=== PATIENT | male | born 1950 | race Hispanic/Latino ===

== ENCOUNTER → 2017-11-11 | Outpatient (CLI) | payer MEDICARE ==
[~2017-11-11] MED LIST: ASPI-1181 PO; CLOP75TA32 PO; LISI1TAB9 PO; METO25TA6 PO; PRAV80TA21 PO
== END | disposition home or self-care (01) ==
LOC: SHCH 10:00
PROVIDERS: ATTEND Internal Medicine Cardiovascular Disease
DX: I70.211 Atherosclerosis of native arteries of extremities with intermittent claudication, right leg (principal)
CPT/HCPCS: 93925

== ENCOUNTER 2017-12-13 07:42 | Observation (INO) | payer MEDICARE ==
[2017-12-09 12:13] VITALS: BP 138/65
[2017-12-09 12:20] LABS: BASOPHILS % (AUTO) 0.7 % (0.0-5.0); EOSINOPHILS % (AUTO) 2.2 % (0.0-8.0); HEMATOCRIT 46.8 % (42-54); LYMPHOCYTES % (AUTO) 20.3 % (21.0-51.0); MEAN CORPUSCULAR HEMOGLOBIN 29.6 pg (27.0-33.0); MEAN CORPUSCULAR HGB CONC 34.7 g/dL (32.0-36.0); MEAN CORPUSCULAR VOLUME 85.2 fL (79-99); MONOCYTES % (AUTO) 7.2 % (3.0-13.0); NEUTROPHILS % (AUTO) 69.6 % (40.0-77.0); NUCLEATED RED BLOOD CELLS 0.1 % (0.0-0.19); PLATELET COUNT (AUTO) 172 K/uL (130-400); RED BLOOD CELL COUNT(AUTO) 5.49 MIL/uL (4.50-6.20); RED CELL DISTRIBUTION WIDTH 13.8 % (11.0-15.5); WHITE BLOOD COUNT (AUTO) 7.9 K/uL (4.8-10.8)
[2017-12-09 12:21] LABS: APPEARANCE,URINE Clear (CLEAR); BILIRUBIN,URINE Negative (NEGATIVE); COLOR,URINE Yellow (YELLOW); GLUCOSE, URINE (UA) Negative (NEGATIVE); KETONES,URINE Negative (NEGATIVE); LEUKOCYTE ESTERASE ,URINE Trace (NEGATIVE); NITRATE,URINE Negative (NEGATIVE); OCCULT BLOOD,URINE Trace (NEGATIVE); PROTEIN,URINE Negative (NEGATIVE); UROBILINOGEN,URINE 0.2 mg/dL (0.2-1.0)
[2017-12-09 12:25] LABS: CREATININE 1.1 mg/dL (0.5-1.5); POTASSIUM 4.2 mmol/L (3.5-5.1)
[2017-12-09 12:26] LABS: BACTERIA,URINE Rare /HPF (None Seen); RBC,URINE 0-1 /HPF (0-1); SQUAMOUS EPITHELIAL CELL,UR Rare /HPF (0-2); WBC,URINE 0-1 /HPF (0-1)
[2017-12-09 12:53] LABS: INR 0.99 (0.85-1.15); PARTIAL THROMBOPLASTIN TIME 25.7 SEC (26.3-35.5); PROTHROMBIN TIME 10.4 SEC (9.6-11.6)
[~2017-12-13] VITALS: Ht 170.2 cm; Wt 104.6 kg
[2017-12-13] VITALS (8 sets, daily range): BP systolic 115–154; BP diastolic 58–87
[~2017-12-13 07:42] MED LIST changes: -CLOP75TA32 PO
[2017-12-13] MEDS ORDERED: BIVALIRUDIN 250 MG/VIAL IV ONE (12:49)
[2017-12-13] MEDS ORDERED: ISOVUE-300 100 ML VIAL IV ONE ×2 (12:50→14:49)
[2017-12-13] MEDS ORDERED: HEPARIN SODIUM 1000UNIT/ML 10ML VIAL ONE ×2 (12:50→14:23)
[2017-12-13] MEDS ORDERED: LIDOCAINE HCL 2% 20ML ONE (12:50)
[2017-12-13] MEDS ORDERED: NITROGLYCERIN 5 MG/ML 10 ML VIAL IV ONE (12:50)
[2017-12-13] MEDS ORDERED: MIDAZOLAM HCL 1 MG/ML 2ML VIAL ONE (14:00)
[2017-12-13] MEDS ORDERED: MORPHINE SULFATE 4 MG/1ML SYG ONE ×2 (14:01→15:20)
[2017-12-13] MEDS ORDERED: SODIUM CHLORIDE 0.9% 1000ML 1,000 ML IV SCH (15:49)
[2017-12-13] MEDS ORDERED: ASPIRIN 325MG EC TAB 325 MG TABLET.DR PO ONE (15:51)
[2017-12-13] MEDS ORDERED: CLOPIDOGREL BISULFATE 300 MG TAB ONE (15:51)
[2017-12-13] MEDS ORDERED: ATORVASTATIN CALCIUM 10 MG TABLET PO SCH (21:00)
[2017-12-13] MEDS: METOPROLOL TARTRATE 25 MG TAB PO SCH (21:00)
[2017-12-14 03:12] VITALS: BP 130/60
[2017-12-14 04:29] LABS: CREATININE 1.2 mg/dL (0.5-1.5); POTASSIUM 3.6 mmol/L (3.5-5.1)
[2017-12-14 08:02] VITALS: BP 123/66
[2017-12-14] MEDS: METOPROLOL TARTRATE 25 MG TAB PO SCH (08:36)
[2017-12-14] MEDS ORDERED: CLOP75TA32 PO (08:45)
[2017-12-14] MEDS ORDERED: ASPIRIN 81 MG EC TAB PO SCH (09:00)
[2017-12-14] MEDS ORDERED: ASPIRIN 81MG TAB.CHEW PO SCH (09:00)
[2017-12-14] MEDS ORDERED: LISINOPRIL 10 MG TABLET PO SCH (09:00)
[2017-12-14] MEDS ORDERED: CLOPIDOGREL BISULFATE 75 MG TAB PO SCH (09:00)
[2017-12-14] MEDS ORDERED: HYDROCHLOROTHIAZIDE 25 MG TABLET PO SCH (09:00)
== END 2017-12-14 11:30 | disposition home or self-care (01) ==
LOC: DAH 07:42 → DAHIP 07:43 → 2DH 16:14
PROVIDERS: ADMIT Internal Medicine Cardiovascular Disease; ATTEND Internal Medicine Cardiovascular Disease
DX: I70.213 Atherosclerosis of native arteries of extremities with intermittent claudication, bilateral legs (principal); E78.5 Hyperlipidemia, unspecified; I10 Essential (primary) hypertension; I25.2 Old myocardial infarction; I25.10 Atherosclerotic heart disease of native coronary artery without angina pectoris; Z95.1 Presence of aortocoronary bypass graft; Z82.49 Family history of ischemic heart disease and other diseases of the circulatory system; Z79.82 Long term (current) use of aspirin; Z79.84 Long term (current) use of oral hypoglycemic drugs
CPT/HCPCS: 36415 ×3; 37221; 37225; 71045; 75630; 80048 ×2; 80061; 81001; 82948; 85025; 85347 ×2; 85610; 85730; 93005; A4606; C1724; C1725 ×2; C1760; C1769 ×4; C1876; C1887; C1893; C1894 ×2; G0378 ×28; J1644 ×2; J2250; J2270 ×2; J3490 ×2; Q9967 ×2; 75710; 99152; 99153; J0583

== ENCOUNTER 2022-10-27 18:46 | Observation (INO) | payer MEDICARE, OTHER ==
[~2022-10-27] VITALS: Ht 177.8 cm; Wt 95.3 kg
[~2022-10-27 18:46] MED LIST changes: -ASPI-1181 PO; +ASPI-1443 PO; +CLOP75TA32 PO; +LISI1TAB49 PO; -LISI1TAB9 PO
[2022-10-27] MEDS ORDERED: LABETALOL 20MG SYG IV ONE (19:30)
[2022-10-27 19:52] LABS: BASOPHILS % (AUTO) 0.5 % (0.0-5.0); EOSINOPHILS % (AUTO) 1.4 % (0.0-8.0); HEMATOCRIT 49.5 % (42-54); MEAN CORPUSCULAR HEMOGLOBIN 28.5 pg (27.0-33.0); MEAN CORPUSCULAR HGB CONC 32.7 g/dL (32.0-36.0); MONOCYTES % (AUTO) 7.1 % (3.0-13.0); NEUTROPHILS % (AUTO) 76.3 % (40.0-77.0); PLATELET COUNT (AUTO) 173 K/uL (130-400); RED BLOOD CELL COUNT(AUTO) 5.69 MIL/uL (4.50-6.20); RED CELL DISTRIBUTION WIDTH 13.5 % (11.0-15.5); WHITE BLOOD COUNT (AUTO) 9.6 K/uL (4.8-10.8)
[2022-10-27 20:04] LABS: CREATININE 1.2 mg/dL (0.5-1.5); INR 1.02 (0.85-1.15); POTASSIUM 4.2 mmol/L (3.5-5.1); PROTHROMBIN TIME 11.1 SEC (9.6-11.6)
[2022-10-27 20:05] LABS: PARTIAL THROMBOPLASTIN TIME 28.2 SEC (26.3-35.5)
[2022-10-27 20:12] LABS: ALBUMIN 3.9 g/dL (3.5-5.0); TOTAL PROTEIN, SERUM 7.3 g/dL (6.0-8.3)
[2022-10-27] MEDS ORDERED: ASPIRIN 81MG CHEW TAB PO ONE (21:00)
[2022-10-27] MEDS ORDERED: IOHEXOL 350 MG/ML 100ML INFUS..BTL IV ONE (22:59)
[2022-10-27] MEDS ORDERED: NITROGLYCERIN 0.4 MG SL TAB SL PRN (23:00)
[2022-10-27] MEDS ORDERED: ACETAMINOPHEN 325 MG TAB PO PRN ×2 (23:00)
[2022-10-27] MEDS ORDERED: ONDANSETRON 4MG INJ IV PRN (23:00)
[2022-10-27 23:31] LABS: HEMOGLOBIN A1C 5.9 % (4.0-6.0)
[2022-10-27 23:32] LABS: APPEARANCE,URINE CLEAR (CLEAR); BILIRUBIN,URINE NEGATIVE (NEGATIVE); GLUCOSE, URINE (UA) NEGATIVE (NEGATIVE); KETONES,URINE NEGATIVE (NEGATIVE); LEUKOCYTE ESTERASE ,URINE NEGATIVE Leu/uL (NEGATIVE); NITRATE,URINE NEGATIVE (NEGATIVE); OCCULT BLOOD,URINE NEGATIVE (NEGATIVE); PROTEIN,URINE NEGATIVE (NEGATIVE); UROBILINOGEN,URINE 0.2 mg/dL (0.2-1.0)
[2022-10-27 23:35] LABS: AMPHET/METH SCREEN,URINE NEGATIVE (NEGATIVE); BARBITURATE SCREEN, URINE NEGATIVE (NEGATIVE); BENZODIAZEPINES SCREEN,URINE NEGATIVE (NEGATIVE); CANNABINOID SCREEN,URINE NEGATIVE (NEGATIVE); COCAINE SCREEN,URINE NEGATIVE (NEGATIVE); OPIATE SCREEN,URINE NEGATIVE (NEGATIVE); PHENCYCLIDINE SCREEN,URINE NEGATIVE (NEGATIVE)
[2022-10-27 23:39] LABS: COLOR,URINE Light-Yellow (YELLOW)
[2022-10-27 23:40] LABS: RBC,URINE 0-1 /HPF (0-1); SQUAMOUS EPITHELIAL CELL,UR RARE /HPF (0-2)
[2022-10-28 04:06] VITALS: BP 116/64
[2022-10-28 05:02] LABS: BASOPHILS % (AUTO) 0.4 % (0.0-5.0); HEMATOCRIT 43.6 % (42-54); LYMPHOCYTES % (AUTO) 19.2 % (21.0-51.0); MEAN CORPUSCULAR HEMOGLOBIN 28.6 pg (27.0-33.0); MEAN CORPUSCULAR VOLUME 86.5 fL (79-99); MONOCYTES % (AUTO) 8.5 % (3.0-13.0); NEUTROPHILS % (AUTO) 70.5 % (40.0-77.0); PLATELET COUNT (AUTO) 149 K/uL (130-400); RED BLOOD CELL COUNT(AUTO) 5.04 MIL/uL (4.50-6.20); RED CELL DISTRIBUTION WIDTH 13.7 % (11.0-15.5); WHITE BLOOD COUNT (AUTO) 7.9 K/uL (4.8-10.8)
[2022-10-28 05:31] LABS: ALBUMIN 3.2 g/dL (3.5-5.0); CREATININE 1.2 mg/dL (0.5-1.5); MAGNESIUM 1.8 mg/dL (1.80-2.40); POTASSIUM 4.1 mmol/L (3.5-5.1)
[2022-10-28 07:35] VITALS: BP 124/69
[2022-10-28] MEDS ORDERED: CLOPIDOGREL 75MG TAB PO SCH (09:00)
[2022-10-28] MEDS ORDERED: ASPIRIN 81 MG EC TAB PO SCH (09:00)
[2022-10-28] MEDS ORDERED: ENOXAPARIN SODIUM 40 MG/0.4 ML SYRINGE SQ SCH (09:00)
[2022-10-28] MEDS ORDERED: FAMOTIDINE 20MG VIAL IV SCH (09:00)
[2022-10-28 11:05] VITALS: BP 108/65
[2022-10-28 15:45] VITALS: BP 119/62
[2022-10-28] MEDS ORDERED: CLOP75TA32 PO (17:17)
[2022-10-28] MEDS ORDERED: ASPI-1443 PO (17:17)
== END 2022-10-28 18:44 | disposition home or self-care (01) ==
LOC: EDH 18:46 → INTOOBSV 22:56 → EDHIP 22:56 → 4CH 10-28 01:02
PROVIDERS: ADMIT Internal Medicine; ATTEND Internal Medicine
DX: G45.9 Transient cerebral ischemic attack, unspecified (principal); I73.9 Peripheral vascular disease, unspecified; I25.10 Atherosclerotic heart disease of native coronary artery without angina pectoris; I63.9 Cerebral infarction, unspecified; I10 Essential (primary) hypertension; G51.0 Bell's palsy; E78.00 Pure hypercholesterolemia, unspecified; I48.91 Unspecified atrial fibrillation; R47.01 Aphasia; R29.700 NIHSS score 0; Z87.891 Personal history of nicotine dependence; Z95.1 Presence of aortocoronary bypass graft; Z79.82 Long term (current) use of aspirin; Z79.899 Other long term (current) drug therapy; Z98.890 Other specified postprocedural states; Z90.49 Acquired absence of other specified parts of digestive tract
CPT/HCPCS: 96374; 99285; 83036; 84484; 80053 ×2; 80305; 85025 ×2; 85610; 85730; 81001; 36415 ×2; 71045; 70450; 70496; 70498; 93005; 96372; 96375; 83735; 80061; 93306; 70551; 97161; 92522; 92610; Q9967; G0378 ×4; J3490; J1650